=== PATIENT | male | born 1960 | race Two or more races ===

== ENCOUNTER 2021-10-09 06:22 | Outpatient (CLI) | payer OTHER | END 2021-10-09 06:23 | disposition home or self-care (01) | LOC: LAB 06:22 | PROVIDERS: ATTEND General Practice | DX: D50.9 Iron deficiency anemia, unspecified (principal); E11.9 Type 2 diabetes mellitus without complications; E78.2 Mixed hyperlipidemia; Z12.5 Encounter for screening for malignant neoplasm of prostate; Z12.11 Encounter for screening for malignant neoplasm of colon; N39.0 Urinary tract infection, site not specified; E03.9 Hypothyroidism, unspecified; E55.9 Vitamin D deficiency, unspecified; I10 Essential (primary) hypertension ==

== ENCOUNTER 2021-10-21 09:45 | Outpatient (CLI) | payer OTHER | END 2021-10-21 15:00 | disposition home or self-care (01) | LOC: LAB 09:45 | DX: R19.5 Other fecal abnormalities (principal); Z12.11 Encounter for screening for malignant neoplasm of colon; Z11.1 Encounter for screening for respiratory tuberculosis ==

== ENCOUNTER 2021-10-29 07:40 | Outpatient (CLI) | payer OTHER | END 2021-10-29 08:39 | disposition home or self-care (01) | LOC: LAB 07:40 | PROVIDERS: ATTEND Internal Medicine Gastroenterology | DX: R19.5 Other fecal abnormalities (principal); E80.6 Other disorders of bilirubin metabolism; D50.9 Iron deficiency anemia, unspecified; E78.5 Hyperlipidemia, unspecified; R76.9 Abnormal immunological finding in serum, unspecified; R74.9 Abnormal serum enzyme level, unspecified ==

== ENCOUNTER → 2021-10-29 | Outpatient (CLI) | payer OTHER | END | disposition home or self-care (01) | LOC: SONOGRAMA 08:18 | PROVIDERS: ATTEND General Practice | DX: Z87.442 Personal history of urinary calculi (principal); R05.9 Cough, unspecified; R10.9 Unspecified abdominal pain; I10 Essential (primary) hypertension; R79.9 Abnormal finding of blood chemistry, unspecified ==

== ENCOUNTER 2021-11-09 09:24 | Outpatient (CLI) | payer OTHER | END 2021-11-09 09:42 | disposition home or self-care (01) | LOC: TOM 09:24 | PROVIDERS: ATTEND Internal Medicine Gastroenterology | DX: K57.32 Diverticulitis of large intestine without perforation or abscess without bleeding (principal); K57.30 Diverticulosis of large intestine without perforation or abscess without bleeding ==